=== PATIENT | female | born 1935 | race African-American/Black ===

== ENCOUNTER 2022-01-10 15:10 | Emergency (ER) | payer MEDICARE, OTHER ==
[~2022-01-10] VITALS: Ht 165.1 cm; Wt 65.0 kg
[~2022-01-10 15:10] MED LIST: AMLO10TA4; HYDR-519; SIMV20TA2
[2022-01-10 16:58] LABS: HEMOGLOBIN. 10.8 g/dL (12.0-16.0); MEAN CORPUSCULAR HEMOGLOBIN 23.2 pg (28.0-32.0); MEAN CORPUSCULAR VOLUME 70.7 fL (81.0-99.0); MEAN PLATELET VOLUME 9.2 fl (7.4-10.4); PLATELET 252 x1000/uL (130-400); RED BLOOD CELL COUNT 4.67 mill/uL (4.2-5.4); RED CELL DISTRIBUTION WIDTH 16.9 % (11.6-14.6)
[2022-01-10 17:02] LABS: CHLORIDE 104 mEq/L (98-107)
[2022-01-10 17:14] LABS: ETHANOL BLOOD < 10 mg/dL
[2022-01-10 19:25] LABS: PLATELET ESTIMATE NORMAL
[2022-01-10 20:00] VITALS: BP 125/71
[2022-01-10] MEDS ORDERED: SODIUM CHLORIDE 0.9% 1,000 ML IV ONE (20:15)
[2022-01-10 21:11] LABS: CLARITY URINE CLEAR (CLEAR); COLOR URINE YELLOW (YELLOW); KETONES URINE TRACE (NEGATIVE); LEUKOCYTE ESTERASE URINE NEGATIVE (NEGATIVE); NITRITE URINE NEGATIVE (NEGATIVE); OCCULT BLOOD URINE NEGATIVE (NEGATIVE); PROTEIN URINE NEGATIVE (NEGATIVE); SPECIFIC GRAVITY URINE 1.009 (1.005-1.030); UROBILINOGEN URINE 0.2 E.U./dL (0.2-1.0)
[2022-01-10 21:26] LABS: *AMPHETAMINES SCREEN URINE NEGATIVE (NEGATIVE); *BARBITURATES SCREEN URINE NEGATIVE (NEGATIVE); *BENZODIAZEPINES SCREEN URINE NEGATIVE (NEGATIVE); *COCAINE SCREEN URINE NEGATIVE (NEGATIVE); CANNABINOID URINE SCREEN NEGATIVE (NEGATIVE); METHADONE URINE SCREEN NEGATIVE (NEGATIVE); OPIATES URINE SCREEN NEGATIVE (NEGATIVE); PHENCYCLIDINE URINE SCREEN NEGATIVE (NEGATIVE)
== END 2022-01-10 22:00 | disposition hospice, inpatient (51) ==
LOC: ER 15:10
DX: R55 Syncope and collapse (principal); M25.511 Pain in right shoulder; J45.909 Unspecified asthma, uncomplicated; I95.9 Hypotension, unspecified; Z20.822 Contact with and (suspected) exposure to COVID-19
CPT/HCPCS: 36415; 70450; 73000; 73030; 80053; 80305; 80320; 81003; 82962; 84484; 85025; 87426; 96360; 99285; C9803; G0480

== ENCOUNTER 2023-02-17 23:01 | Emergency (ER) | payer OTHER ==
[~2023-02-17] VITALS: Ht 162.6 cm; Wt 56.0 kg
[~2023-02-17 23:01] MED LIST changes: +SIMV-343; -SIMV20TA2
[2023-02-17 23:20] VITALS: BP 180/79; PULSE 90; RESP 16; TEMP 97.9; O2SAT 99
[2023-02-17] MEDS ORDERED: MORPHINE SULFATE 4 MG/ML CPJ (NOT FOR IM USE) IV ONE (23:45)
[2023-02-18 01:24] LABS: HEMATOCRIT 31.3 % (36.0-48.0); HEMOGLOBIN 10.1 g/dL (12.0-16.0); MEAN CORPUSCULAR HEMOGLOBIN 22.4 pg (28.0-32.0); MEAN CORPUSCULAR HGB CONC 32.3 g/dL (31.0-37.0); MEAN CORPUSCULAR VOLUME 69.6 fL (81.0-99.0); PLATELET 281 x1000/uL (130-400); RED CELL DISTRIBUTION WIDTH 16.7 % (11.6-14.6)
[2023-02-18 01:37] LABS: CHLORIDE 107 mEq/L (98-107); INDEX HEMOLYSI 1 (1-3); INDEX ICTERIC 1 (1-4); INDEX LIPEMIC 1 (1-3); POTASSIUM 3.8 mEq/L (3.5-5.1); SODIUM 141 mEq/L (136-145)
[2023-02-18 01:47] LABS: ALANINE AMINOTRANSFERASE 19 IU/L (13-61); ALBUMIN 3.4 g/dL (3.4-5.0); ASPARTATE AMINOTRANSFERASE 28 IU/L (15-37); BILIRUBIN TOTAL 0.5 mg/dL (0.1-1.0); CALCIUM 9.1 mg/dL (8.5-10.1); CARBON DIOXIDE 30 mEq/L (21-32); GLUCOSE 172 mg/dL (70-105); PROTEIN TOTAL 7.5 g/dL (6.0-8.3); UREA NITROGEN BLOOD 19 mg/dL (7-21)
== END 2023-02-18 07:29 | disposition short-term general hospital (02) ==
LOC: ER 23:01
DX: S72.002A Fracture of unspecified part of neck of left femur, initial encounter for closed fracture (principal); M97.02XA Periprosthetic fracture around internal prosthetic left hip joint, initial encounter; M54.2 Cervicalgia; R51.9 Headache, unspecified; I10 Essential (primary) hypertension; W10.9XXA Fall (on) (from) unspecified stairs and steps, initial encounter; Y93.9 Activity, unspecified; Y92.89 Other specified places as the place of occurrence of the external cause; Y99.8 Other external cause status
CPT/HCPCS: 36415; 73502; 80053; 85027; 99285